=== PATIENT | female | born 1990 | race African-American/Black ===

== ENCOUNTER 2022-01-30 02:49 | Emergency (ER) | payer MEDICAID ==
[~2022-01-30] VITALS: Ht 170.2 cm; Wt 66.0 kg
[2022-01-30 03:39] LABS: BASOPHILS % 0.3 % (0.0-2.0); EOSINOPHILS % 0.5 % (0.0-5.0); HEMATOCRIT. 46.3 % (36.0-48.0); HEMOGLOBIN. 14.7 g/dL (12.0-16.0); LYMPHOCYTES % 9.6 % (20.0-50.0); MEAN CORPUSCULAR VOLUME 91.1 fL (81.0-99.0); MEAN PLATELET VOLUME 8.8 fl (7.4-10.4); MONOCYTES % 5.1 % (2.0-8.0); NEUTROPHILS % 84.5 % (40.0-76.0); PLATELET 267 x1000/uL (130-400); RED BLOOD CELL COUNT 5.08 mill/uL (4.2-5.4); RED CELL DISTRIBUTION WIDTH 13.9 % (11.6-14.6)
[2022-01-30 03:48] LABS: CHLORIDE 107 mEq/L (98-107)
[2022-01-30 03:59] LABS: B-HCG QUANTITATIVE < 1 mIU/mL (<3)
[2022-01-30] MEDS ORDERED: ONDANSETRON 4MG ODT PO ONE (04:45)
[2022-01-30 05:30] VITALS: BP 135/90
== END 2022-01-30 05:30 | disposition home or self-care (01) ==
LOC: ER 02:49 → EDBD 02:49 → ER 05:30
DX: R10.9 Unspecified abdominal pain (principal)
CPT/HCPCS: 36415; 80053; 84702; 85025; 86850; 86900; 86901; 99283; Q0162